=== PATIENT | female | born 1960 | race Caucasian/White ===

== ENCOUNTER 2021-04-29 07:18 | Emergency (ER) | payer MEDICAID ==
[~2021-04-29] VITALS: Ht 154.9 cm; Wt 95.3 kg
[2021-04-29 07:38] VITALS: BP_SYST 158
[2021-04-29 08:20] VITALS: BP_SYST 158
== END 2021-04-29 08:20 | disposition home or self-care (01) ==
LOC: SED 07:18
DX: S41.152A Open bite of left upper arm, initial encounter (principal); S40.022A Contusion of left upper arm, initial encounter; Z88.8 Allergy status to other drugs, medicaments and biological substances; W54.0XXA Bitten by dog, initial encounter; Y93.89 Activity, other specified; Y92.89 Other specified places as the place of occurrence of the external cause; Y99.8 Other external cause status
CPT/HCPCS: 99281